=== PATIENT | male | born 1990 | race Caucasian/White ===

== ENCOUNTER 2016-06-10 19:53 | Emergency (ER) | payer BC ==
[~2016-06-10] VITALS: Ht 185.4 cm; Wt 65.9 kg
[~2016-06-10 19:53] MED LIST: ADDERALL XR25 MG PO; LORTAB 5/500 501 TAB PO; NO HOME MEDICATIONS; NORCO 325 MG-51 TAB PO; ULTRAM 50MG TAB50 MG PO; VIVANCE; VYVANSE20 MG PO
[2016-06-10 19:55] VITALS: TEMP 97.4
[2016-06-10 20:32] LABS: INFLUENZA B NEGATIVE
[2016-06-10] MEDS ORDERED: PREDNISONE20 MG PO (20:48)
[2016-06-10] MEDS ORDERED: ZITHROMAX 250M250 MG PO (20:48)
[2016-06-10 20:51] VITALS: BP 139/88; PULSE 71
== END 2016-06-10 20:52 | disposition home or self-care (01) ==
LOC: COL.ER 19:53
PROVIDERS: Emergency Medicine
DX: J20.9 Acute bronchitis, unspecified (principal); F17.210 Nicotine dependence, cigarettes, uncomplicated
CPT/HCPCS: J7512

== ENCOUNTER 2016-08-06 17:33 | Emergency (ER) | payer BC ==
[~2016-08-06] VITALS: Ht 182.9 cm; Wt 61.4 kg
[~2016-08-06 17:33] MED LIST changes: +PREDNISONE20 MG PO; +ZITHROMAX 250M250 MG PO
[2016-08-06 17:35] VITALS: TEMP 98.2
[2016-08-06] MEDS ORDERED: PROAIR HFA0.09 MG/AC IH (19:10)
[2016-08-06] MEDS ORDERED: PREDNISONE20 MG PO (19:10)
[2016-08-06] MEDS ORDERED: NORCO 325 MG-51 TAB PO (19:10)
[2016-08-06 19:19] VITALS: BP 122/70; PULSE 71
== END 2016-08-06 19:19 | disposition home or self-care (01) ==
LOC: COL.ER 17:33
DX: J20.9 Acute bronchitis, unspecified (principal); M94.0 Chondrocostal junction syndrome [Tietze]; F17.210 Nicotine dependence, cigarettes, uncomplicated
CPT/HCPCS: J7512

== ENCOUNTER 2017-03-18 22:25 | Emergency (ER) | payer BC ==
[~2017-03-18] VITALS: Ht 185.4 cm; Wt 61.4 kg
[~2017-03-18 22:25] MED LIST changes: +PROAIR HFA0.09 MG/AC IH
[2017-03-18 22:27] VITALS: BP 117/73; TEMP 99.5
[2017-03-18] MEDS ORDERED: PROAIR HFA0.09 MG/AC IH (22:46)
[2017-03-18] MEDS ORDERED: ZITHROMAX Z PA250 MG PO (22:56)
[2017-03-18] MEDS ORDERED: TESSALON P100 MG/CAP PO (22:56)
[2017-03-18 23:34] VITALS: PULSE 89
== END 2017-03-18 23:36 | disposition home or self-care (01) ==
LOC: COL.ER 22:25
DX: M94.0 Chondrocostal junction syndrome [Tietze] (principal); J40 Bronchitis, not specified as acute or chronic; J45.909 Unspecified asthma, uncomplicated; Z87.891 Personal history of nicotine dependence
CPT/HCPCS: J1885

== ENCOUNTER → 2018-11-20 | Outpatient (CLI) | payer BC ==
[~2018-11-20] MED LIST changes: +TESSALON P100 MG/CAP PO; +ZITHROMAX Z PA250 MG PO
== END ==
LOC: COL.RAD 11:25
DX: K92.1 Melena (principal); R91.1 Solitary pulmonary nodule
CPT/HCPCS: Q9967

== ENCOUNTER 2019-06-14 02:10 | Emergency (ER) | payer SELFPAY ==
[~2019-06-14] VITALS: Ht 185.4 cm; Wt 65.9 kg
[2019-06-14] MEDS ORDERED: ANUSOL HC CREAM30 GM TP (03:54)
[2019-06-14 04:22] VITALS: BP 116/76; PULSE 70; TEMP 98.1
== END 2019-06-14 04:23 | disposition home or self-care (01) ==
LOC: COL.ER 02:10
DX: K64.5 Perianal venous thrombosis (principal); F17.210 Nicotine dependence, cigarettes, uncomplicated
CPT/HCPCS: J1885